=== PATIENT | female | born 1940 | race Caucasian/White ===

== ENCOUNTER 2016-04-23 14:55 | Observation (INO) ==
--- NOTE | 2016-04-23 15:29 | Emergency Department Note ---
Disposition Clinical Impression: Febrile illness, Hyponatremia Disposition: Admitted As Inpatient Condition: Fair Time of Disposition: 16:21 URI/Sore Throat HPI - General Chief Complaint: ED Upper Respiratory Infection Stated Complaint: COUGH, FEVER, CHILLS Source: patient Limitations: no limitations Nursing Notes Reviewed: Yes Vital Signs Reviewed: Yes - History of Present Illness HPI Narrative: His is a 76-year-old female brought in by family due to fever and possible pneumonia. Pt Subjective Complaint: fever - Related Data Home Medications Medication Instructions Recorded Confirmed Aspirin [Ecotrin] 325 mg PO DAILY 04/23/16 04/23/16 Folic Acid 1 mg PO DAILY 04/23/16 04/23/16 Lisinopril-HCTZ 10-12.5 [Prinzide 1 each PO DAILY 04/23/16 04/23/16 10-12.5] Vitamin B Complex [B Complex] 1 each PO DAILY 04/23/16 04/23/16 Allergies Allergy/AdvReac Type Severity Reaction Status Date / Time cephalexin AdvReac Anxiety Verified 07/19/15 07:51 All systems ED: reviewed and negative except as stated. URI PMH - Past Medical History Medical history: Reports: arthritis, hypertension Psychiatric history: Reports: no psych history - Social History Smoking Status: Never smoker Alcohol use: Reports: none Drug use: Reports: none Physical Exam - General Limitations: no limitations General appearance: alert - Head Head exam: atraumatic - Eye Eye exam: Present: normal appearance - ENT ENT exam: normal exam - Neck Neck exam: Present: normal inspection - Chest Chest inspection: Present: normal inspection - Respiratory Respiratory exam: Present: normal lung sounds bilaterally - Cardiovascular Cardiovascular exam: Present: regular rate, normal rhythm - Abdominal Exam Abdominal exam: Present: soft, Non-Tender - Expanded Lower Extremity Exam Gait: observed and normal - Back Exam Back exam: Present: normal inspection - Neurological Exam Neurological exam: Present: alert, oriented X3 - Psychiatric Psychiatric exam: Present: normal affect - Skin Skin exam: Present: warm, dry Course Course Narrative: Discussed low-sodium with patient and patient's family member patient wants to go home and decreased amount of water she ingests. - Reevaluation(s) Reevaluation #1: Patient has changed her mind and has decided to be admitted to the hyponatremia Vital Signs Temperature 102.8 F H 04/23/16 14:56 Pulse Rate 63 04/23/16 14:56 Respiratory Rate 18 04/23/16 14:56 Blood Pressure 124/63 04/23/16 14:56 O2 Sat by Pulse Oximetry 93 L 04/23/16 14:56 Temperature 100.2 F H 04/23/16 17:44 Pulse Rate 63 04/23/16 14:56 Respiratory Rate 18 04/23/16 17:44 Blood Pressure 124/63 04/23/16 17:44 O2 Sat by Pulse Oximetry 93 L 04/23/16 14:56 Oxygen Delivery Oxygen Delivery Room Air Upper Respiratory Infection - MDM Narrative Medical decision making narrative: Differential: Pneumonia versus febrile illness versus urinary tract infection - Lab Data Lab results reviewed: Yes I reviewed the patient's lab results. Result diagrams: 04/23/16 15:39 04/23/16 15:39 Lab Results 04/23/16 04/23/16 04/23/16 Range/Units 15:39 15:39 15:39 WBC 12.3 H (4.3-11.1) K/mcL RBC 4.68 (3.82-4.97) M/mcL Hgb 14.2 (11.5-15.4) g/dL Hct 40.4 (35.3-44.9) % MCV 86.3 (83.0-100.0) fL MCH 30.3 (28.0-33.3) pg MCHC 35.1 (31.6-35.5) g/dL RDW 12.7 (11.5-14.5) % Plt Count 192 (140-400) K/mcL MPV 9.5 (9.4-12.4) fL Immature Gran % 0.6 (0-4) % Seg Neutrophils % 81.0 % Lymphocytes % 9.8 % Monocytes % 8.5 % Eosinophils % 0.0 % Basophils % 0.1 % Neutrophils # 10.0 H (1.6-8.9) K/mcL Lymphocytes # 1.2 (0.6-4.6) K/mcL Monocytes # 1.1 (0.0-1.3) K/mcL Eosinophils # 0.0 (0.0-0.6) K/mcL Basophils # 0.0 (0.0-0.2) K/mcL PT 12.6 H (9.4-12.1) Seconds INR 1.2 VBG Lactic Acid (0.5-2.2) mmol/L Sodium 129 L (136-145) mEq/L Potassium 3.8 (3.5-4.5) mEq/L Chloride 94 L (98-109) mEq/L Carbon Dioxide 24 (19-29) mEq/L BUN 15 (7-20) mg/dL Creatinine 0.73 (0.57-1.11) mg/dL Est GFR ( Amer) > 60 (> 60) Est GFR (Non-Af Amer) > 60 (> 60) BUN/Creatinine Ratio 21 (6-26) Glucose 116 H (70-99) mg/dL Calculated Osmolality 270 L (280-300) Calcium 9.3 (8.6-10.8) mg/dL Total Bilirubin 0.9 (0.2-1.2) mg/dL AST 24 (5-34) Units/L ALT 22 (0-55) Units/L Alkaline Phosphatase 50 (38-126) Units/L Troponin I (0-0.03) ng/mL Serum Total Protein 7.6 (6.0-8.3) g/dL Albumin 3.6 (3.5-5.0) g/dL Globulin 4.0 H (2.4-3.5) g/dL Albumin/Globulin Ratio 0.9 L (1.1-2.2) Urine Color (Yellow) Urine Clarity (Clear) Urine pH (5.0-8.0) pH Units Ur Specific [place] (1.010-1.025) Urine Protein (Neg-Trace) mg/dL Urine Glucose (UA) (Normal) mg/dL Urine Ketones (Negative) mg/dL Urine Blood (Negative) Urine Nitrite (Negative) Urine Bilirubin (Negative) Urine Urobilinogen (Normal) mg/dL Ur Leukocyte Esterase (Negative) Urine Microscopic WBC (0-3) per hpf Ur Squamous Epith Cells (None-Few) per lpf Urine Starch Urine Mucus (Few) Ur Culture Indicated? (NO) 04/23/16 04/23/16 04/23/16 Range/Units 15:39 15:39 15:47 WBC (4.3-11.1) K/mcL RBC (3.82-4.97) M/mcL Hgb (11.5-15.4) g/dL Hct (35.3-44.9) % MCV (83.0-100.0) fL MCH (28.0-33.3) pg MCHC (31.6-35.5) g/dL RDW (11.5-14.5) % Plt Count (140-400) K/mcL MPV (9.4-12.4) fL Immature Gran % (0-4) % Seg Neutrophils % % Lymphocytes % % Monocytes % % Eosinophils % % Basophils % % Neutrophils # (1.6-8.9) K/mcL Lymphocytes # (0.6-4.6) K/mcL Monocytes # (0.0-1.3) K/mcL Eosinophils # (0.0-0.6) K/mcL Basophils # (0.0-0.2) K/mcL PT (9.4-12.1) Seconds INR VBG Lactic Acid 0.8 (0.5-2.2) mmol/L Sodium (136-145) mEq/L Potassium (3.5-4.5) mEq/L Chloride (98-109) mEq/L Carbon Dioxide (19-29) mEq/L BUN (7-20) mg/dL Creatinine (0.57-1.11) mg/dL Est GFR ( Amer) (> 60) Est GFR (Non-Af Amer) (> 60) BUN/Creatinine Ratio (6-26) Glucose (70-99) mg/dL Calculated Osmolality (280-300) Calcium (8.6-10.8) mg/dL Total Bilirubin (0.2-1.2) mg/dL AST (5-34) Units/L ALT (0-55) Units/L Alkaline Phosphatase (38-126) Units/L Troponin I 0.01 (0-0.03) ng/mL Serum Total Protein (6.0-8.3) g/dL Albumin (3.5-5.0) g/dL Globulin (2.4-3.5) g/dL Albumin/Globulin Ratio (1.1-2.2) Urine Color Dark Yellow (Yellow) Urine Clarity Slightly Cloudy A (Clear) Urine pH 6.5 (5.0-8.0) pH Units Ur Specific [place] 1.020 (1.010-1.025) Urine Protein 30 H (Neg-Trace) mg/dL Urine Glucose (UA) Normal (Normal) mg/dL Urine Ketones Trace H (Negative) mg/dL Urine Blood Negative (Negative) Urine Nitrite Negative (Negative) Urine Bilirubin Small H (Negative) Urine Urobilinogen Normal (Normal) mg/dL Ur Leukocyte Esterase Negative (Negative) Urine Microscopic WBC 0-3 (0-3) per hpf Ur Squamous Epith Cells Few (None-Few) per lpf Urine Starch Present Urine Mucus Many H (Few) Ur Culture Indicated? NO (NO) - Radiology Data Radiology results reviewed: Yes I reviewed the patient's radiology results. ITS Impressions Chest X-Ray 04/23/16 15:17 IMPRESSION: No acute process. D/ / Raji Gonzalez MD / Raji Gonzalez MD Interpreting Provider: Raji Gonzalez MD
[2016-04-23 15:49] LABS: Basophils % 0.1 %; Hematocrit 40.4 % (35.3-44.9); Hemoglobin 14.2 g/dL (11.5-15.4); Immature Granulocytes % 0.6 % (0-4); Lymphocytes # 1.2 K/mcL (0.6-4.6); Lymphocytes % 9.8 %; Mean Corpuscular HGB Conc 35.1 g/dL (31.6-35.5); Mean Corpuscular Hemoglobin 30.3 pg (28.0-33.3); Mean Corpuscular Volume 86.3 fL (83.0-100.0); Mean Platelet Volume 9.5 fL (9.4-12.4); Monocytes # 1.1 K/mcL (0.0-1.3); Monocytes % 8.5 %; Platelet Count 192 K/mcL (140-400); Red Blood Count 4.68 M/mcL (3.82-4.97); Red Cell Distribution Width 12.7 % (11.5-14.5)
[2016-04-23 15:55] LABS: INR 1.2; Prothrombin Time 12.6 Seconds (9.4-12.1)
[2016-04-23 15:57] LABS: Bilirubin,Urine Small (Negative); Blood,Urine Negative (Negative); Clarity,Urine Slightly Cloudy (Clear); Color,Urine Dark Yellow (Yellow); Glucose,Urine (UA) Normal (Normal); Ketones,Urine Trace mg/dL (Negative); Leukocyte Esterase,Urine Negative (Negative); Nitrite,Urine Negative (Negative); PH,Urine 6.5 pH Units (5.0-8.0); Protein,Urine 30 mg/dL (Neg-Trace); Urobilinogen,Urine Normal (Normal)
[2016-04-23 16:07] LABS: Alanine Aminotransferase 22 Units/L (0-55); Albumin 3.6 g/dL (3.5-5.0); Albumin/Globulin Ratio 0.9 (1.1-2.2); Alkaline Phosphatase 50 Units/L (38-126); Aspartate Amino Transferase 24 Units/L (5-34); BUN/Creatinine Ratio 21 (6-26); Bilirubin,Total 0.9 mg/dL (0.2-1.2); Blood Urea Nitrogen 15 mg/dL (7-20); Calcium 9.3 mg/dL (8.6-10.8); Carbon Dioxide 24 mEq/L (19-29); Chloride 94 mEq/L (98-109); Glucose 116 mg/dL (70-99); Osmolality,Calculated 270 (280-300); Potassium 3.8 mEq/L (3.5-4.5); Sodium 129 mEq/L (136-145); Total Protein 7.6 g/dL (6.0-8.3); eGFR For African Americans > 60 (> 60); eGFR For Non-African Americans > 60 (> 60)
[2016-04-23 16:07] LABS: Squamous Epithelial Cell,Urine Few per lpf (None-Few); WBC,Urine 0-3 per hpf (0-3)
[2016-04-23 16:08] LABS: Mucus,Urine Many (Few)
[2016-04-23] MEDS ORDERED: Ibuprofen 600 MG TABLET PO PRN (20:07)
[2016-04-24 06:52] LABS: Basophils % 0.2 %; Eosinophils % 0.1 %; Hematocrit 38.7 % (35.3-44.9); Hemoglobin 13.2 g/dL (11.5-15.4); Immature Granulocytes % 0.9 % (0-4); Lymphocytes % 8.8 %; Mean Corpuscular HGB Conc 34.1 g/dL (31.6-35.5); Mean Corpuscular Hemoglobin 29.6 pg (28.0-33.3); Mean Corpuscular Volume 86.8 fL (83.0-100.0); Mean Platelet Volume 9.7 fL (9.4-12.4); Monocytes # 0.8 K/mcL (0.0-1.3); Monocytes % 7.6 %; Neutrophils # 8.9 K/mcL (1.6-8.9); Platelet Count 164 K/mcL (140-400); Red Blood Count 4.46 M/mcL (3.82-4.97); Red Cell Distribution Width 12.7 % (11.5-14.5); Segmented Neutrophils % 82.4 %
[2016-04-24 07:15] LABS: BUN/Creatinine Ratio 22 (6-26); Blood Urea Nitrogen 15 mg/dL (7-20); Calcium 9.3 mg/dL (8.6-10.8); Carbon Dioxide 28 mEq/L (19-29); Chloride 96 mEq/L (98-109); Glucose 115 mg/dL (70-99); Osmolality,Calculated 278 (280-300); Potassium 3.8 mEq/L (3.5-4.5); Sodium 133 mEq/L (136-145); eGFR For African Americans > 60 (> 60); eGFR For Non-African Americans > 60 (> 60)
[2016-04-24] MEDS ORDERED: Aspirin Enteric Coated 325 MG Tablet PO SCH (09:00)
[2016-04-24] MEDS ORDERED: Vitamin B Complex/Vit C/Vit E 1 EACH TABLET PO SCH (09:00)
[2016-04-24] MEDS ORDERED: Folic Acid 1 MG TABLET PO SCH (09:00)
--- NOTE | 2016-04-24 10:35 | Internal Med History&Physical ---
Date of Encounter: 04/24/16 Time of Encounter: 10:00 Assessment and Plan (1) Acute bronchitis Current visit: Yes Status: Acute I explained to her this is often viral etiology. She will be given Levaquin for 2 additional days. Qualifiers: Bronchitis organism: unspecified organism Qualified Code(s): J20.9 - Acute bronchitis, unspecified (2) Hyponatremia Current visit: Yes Status: Acute Repeat labs have shown sodium rising to 133. Internal Medicine - H&P: HPI Chief complaint: Dyspnea and cough Admitted From: Home Plans for Post Hospital Care: Home History of present illness: Ms. Clark is a 76 year old female who came to emergency stating she had not improved after receiving clarithromycin and prednisone at an office visit April 13 for dyspnea. She was told she likely had bronchitis. When she did not improve she came to emergency room and was noted to have mild leukocytosis with left shift and hyponatremia. She was admitted to [facility] floor for ongoing care needs. She states she feels improved at the present time. Her respiratory history is significant for having smoked from age [age]. She denies no known chronic lung disease. She denies chronic cough or significant dyspnea on exertion. She has been able to walk 1-1/2 miles on a regular basis. Past Med Surg Social Fam HX - Past Medical History Medical history: arthritis, hypertension Psychiatric history: no psych history - Past Surgical History Surgical History: appendectomy - Social History Smoking Status: Never smoker Smokeless Tobacco Status: No Alcohol use: none Drug use: none Internal Medicine - H&P: Meds Aspirin [Ecotrin] 325 mg PO DAILY 04/23/16 [History] Folic Acid 1 mg PO DAILY 04/23/16 [History] Lisinopril-HCTZ 10-12.5 [Prinzide 10-12.5] 1 each PO DAILY 04/23/16 [History] Vitamin B Complex [B Complex] 1 each PO DAILY 04/23/16 [History] Allergies cephalexin Adverse Reaction (Verified 07/19/15 07:51) Anxiety All Systems PM: A 10-system review of systems was performed and is negative for pertinent findings except as documented above in the HPI. Review of systems: Gen.: She states her weight has been stable for several months Cardiovascular: She has history of hypertension but denies [place] heart failure angina DVT or pulmonary embolus Respiratory: As per history of present illness GI: She denies disorders of her liver gallbladder or exocrine pancreas : She denies hematuria dysuria or kidney stones Neurologic: She denies large distribution strokes or seizures Endocrine: She has hyperlipidemia but denies diabetes or thyroid disease Hematology/oncology: She denies blood disorders cancers or anemia Psychiatric: She denies anxiety depression or other mental health issues [place] skeletal: She has DJD but denies gout or other bone joint or muscle disorders. - Constitutional Vitals: Temp Pulse Resp BP Pulse Ox 98.5 F 60 18 103/64 95 04/24/16 02:00 04/24/16 02:00 04/24/16 02:00 04/24/16 02:00 04/24/16 04:37 Exam: Gen.: She is a well-developed well-nourished female appears in no severe distress at present time. HEENT: Head is atraumatic and normocephalic. Eyes: EOMI. There is no scleral icterus. Mouth: Mucosa is moist. Neck: Supple and nontender. There is no thyromegaly or adenopathy noted. Heart: Regular without murmurs gallops or ectopics. Lungs: No wheezes or crackles are heard. Abdomen: Soft and nontender. No masses or guarding are noted. Extremities: There is no cyanosis edema or clubbing noted. Dorsalis pedis and posttibial pulses are 1-2 over 2 bilaterally. She has mild DJD changes of her hands. Neurologic: Mental status: She is talkative and a good historian. Cranial nerves: Smile is symmetric. Forehead wrinkles bilaterally. Tongue protrudes midline. EOMI. Motor: There is no pronator drift. Cerebellar: Finger to nose is intact bilaterally. Skin: Warm and dry Internal Med - H&P Results - Labs CBC & Chem 7: 04/24/16 06:37 04/24/16 06:37 Labs: Short CBC 04/24/16 Range/Units 06:37 WBC 10.8 (4.3-11.1) K/mcL Hgb 13.2 (11.5-15.4) g/dL Hct 38.7 (35.3-44.9) % Plt Count 164 (140-400) K/mcL Neutrophils # 8.9 (1.6-8.9) K/mcL BMP 04/24/16 06:37 Sodium 133 L Potassium 3.8 Chloride 96 L Carbon Dioxide 28 BUN 15 Creatinine 0.69 Glucose 115 H Calcium 9.3
--- NOTE | 2016-04-24 10:44 | Discharge Summary ---
Date of Encounter: 04/24/16 Time of Encounter: 10:00 - Discharge Diagnosis (1) Acute bronchitis Priority: Primary Status: Acute Qualifiers: Bronchitis organism: unspecified organism Qualified Code(s): J20.9 - Acute bronchitis, unspecified (2) Hyponatremia Priority: Secondary Status: Acute - Discharge Medications Prescriptions: Levofloxacin [Levaquin] 500 mg PO DAILY #2 tablet Home Medications: Aspirin [Ecotrin] 325 mg PO DAILY 04/23/16 [History] Folic Acid 1 mg PO DAILY 04/23/16 [History] Lisinopril-HCTZ 10-12.5 [Prinzide 10-12.5] 1 each PO DAILY 04/23/16 [History] Vitamin B Complex [B Complex] 1 each PO DAILY 04/23/16 [History] Levofloxacin [Levaquin] 500 mg PO DAILY #2 tablet 04/24/16 [Rx] Allergies/Adverse Reactions: Allergies cephalexin Adverse Reaction (Verified 07/19/15 07:51) Anxiety Date of admission: 04/23/16 16:49 Primary care physician: Jose Silveira DO Consults: 04/23/16 18:12 Consult to [facility] [CONS] Routine Reason for SW Consult: to see if there are ajny available services for pt - Patient Status Disposition: Home, Self-Care Condition: Fair Overall status at discharge: patient is progressing back to baseline - Discharge Instructions Follow Up With: Jose Silveira DO [Primary Care Provider] - 1 week - Diet and Activity Activity: resume usual activities as tolerated Diet: advance to your usual diet Hospital course: Ms. Clark is a 76 year old female who came to emergency stating she had not improved after receiving clarithromycin and prednisone at an office visit April 13 for dyspnea. She was told she likely had bronchitis. When she did not improve she came to emergency room and was noted to have mild leukocytosis with left shift and hyponatremia. She was admitted to [facility] floor for ongoing care needs. Initial orders were written by the emergency room physician. I saw her on April 24 and performed the history physical and discharge. Lab work done on April 24 showed WBC normal at 10.8 with 82.4% segs. Chest x-ray was interpreted as unremarkable. I explained to her she likely had bronchitis which is often due to viral infection. I will give her only 2 days of Levaquin 500 milligrams daily at discharge. Her sodium level improved to 133 on April 24. This be followed as an outpatient by Dr. Silveira. She will be discharged home and follow with Dr. Silveira within 1 week. - Time Spent with Patient Total time spent providing and/or coordinating discharge services: - Constitutional Vitals: Temp Pulse Resp BP Pulse Ox 98.5 F 60 18 103/64 95 04/24/16 02:00 04/24/16 02:00 04/24/16 02:00 04/24/16 02:00 04/24/16 04:37
[2016-04-24 11:44] VITALS: BP 107/66
== END 2016-04-24 12:42 | disposition home or self-care (01) ==
LOC: INPPIK 14:55 → EMEROOPIK 14:55 → INPPIK 17:44
PROVIDERS: ADMIT Internal Medicine; ATTEND Internal Medicine